=== PATIENT | female | born 1945 | race Caucasian/White ===

== ENCOUNTER 2017-01-19 18:38 | Emergency (ER) | payer MEDICARE ==
[~2017-01-19] VITALS: Ht 154.9 cm; Wt 47.7 kg
[~2017-01-19 18:38] MED LIST: AMLO10TA3 PO; ATEN25TA PO; HYDR-4003 PO; LISI40TA PO; ZOLP10TA5 PO
[2017-01-19 18:55] VITALS: BP 171/57; PULSE 72; RESP 20; O2SAT 96
--- NOTE | 2017-01-19 19:29 | ED.REPORT ---
HPI-Altered Mental Status Date of Service January 19, 2017 ED Provider: Ronnie Medellin MD The pt is a 71 y/o female w/ a hx of hypertension presenting to the ED via EMS due to increased confusion per her . She is also experiencing SOB and a cough onset yesterday. She denies fever, diaphoresis, chills, productive cough, abd pain, nausea, vomiting, dysuria, numbness or weakness in extremities. She is an ex-smoker and does not have a hx of emphysema or COPD. Nursing Notes Stated Complaint: ALTERED LOC Chief Complaint: Neuro Symptoms/ Deficits Nursing Notes Reviewed: Yes ([id number], chart blank, meds not reconciled) Allergies: Coded Allergies: No Known Allergies (Verified Allergy, Unknown, 05/31/15) Scheduled Amlodipine (Amlodipine) 5 Mg Tablet 5 MG PO BID Atenolol (Atenolol) 25 Mg Tablet 25 MG PO QAM Doxycycline Hyclate (Doxycycline Hyclate) 100 Mg Tablet 100 MG PO BID X10 DAYS Lisinopril (Lisinopril) 40 Mg Tablet 40 MG PO QPM Prednisone (PredniSONE) 50 Mg Tablet 50 MG PO QAM x5 days Scheduled PRN Albuterol HFA (Proair HFA) 8.5 Gm Hfa.aer.ad 2 PUFFS INHALATION Q4H PRN PRN For Shortness of Breath Benzonatate (Benzonatate) 200 Mg Capsule 200 MG PO TID PRN PRN For Cough Hydrocodone-Acetaminophen 5-325 mg (Hydrocodone-Acetaminophen 5-325 mg) 1 Each Tablet 1 TABLET PO Q6H PRN PRN For Pain Zolpidem (Zolpidem) 10 Mg Tablet 10 MG PO HS PRN PRN For Insomnia General Time Seen by MD: 19:27 Chief Complaint Other (Increased confusion) Hx Obtained From: Patient Sudden in Onset?: Yes Onset Occurred: Yesterday Recent Healthcare: No recent hospitalization, Recent doctor visit Past Medical History Past Medical History Notes: Patient denies taking any current medicines but is confused-old records in 2010 indicates that she used to be on lisinopril 40 mg daily, and atenolol 25 mg daily, patient was given prescriptions for doxycycline and Tessalon Perles several days ago at the urgent care-the patient states she is not taking these either Past Medical History 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, completed in June 2010 Hypertension Denies: Diabetes mellitus Past Surgical History For cancer Hysterectomy Right breast biopsy Foot surgery D&C 2 Smoking History Former Smoker (records indicate patient quit in 2008 after 50 pack years of smoking, patient's confused but denied being a smoker today) Social History Alcohol Use: Denies alcohol use Drug Use: Denies drug use Ambulatory Status Independent Review of Systems Constitutional: Denies: Chills, Fever Respiratory: Reports: Non-productive cough, Shortness of breath GI: Denies: Abdominal pain, Nausea, Vomiting Skin: Denies Diaphoresis Neurologic: Reports: Confusion, Denies: Numbness, Weakness Complete sys rev & neg: except as marked. Female: Denies: Dysuria Physical Exam Initial Vital Signs Vital Signs (First) Date Time Temp Pulse Resp B/P Pulse Ox O2 Delivery O2 Flow Rate FiO2 01/19/17 18:55 36.4 72 20 171/57 96 Room Air Initial VS: Reviewed, Unavailable (no vitals on chart, ordered) General/Constitutional: Awake, Alert Alertness: Positive: Confused (Mild) Head / Eyes: Atraumatic, Normocephalic Neck: Atraumatic, Full range of motion Respiratory / Chest: Breath sounds = bilat, No respiratory distress Audible wheezing Rhonchi Tachypnea O2 saturation is low w/o exertion Cardiovascular: Heart rate NL, Regular rhythm, Heart sounds NL No peripheral edema Neurologic: Speech NL, No motor deficits, No sensory deficits Pt knows birthday but not date Psychiatric: Not suicidal, Not homicidal Limited insight and judgement Interpretation & Diagnostics Lab Results Interpretation Result Diagram: 01/19/17200401/19/176 Test 01/19/17 20:05 01/19/17 22:26 White Blood Count 20.2th/mm3 (3.8-10.1) Red Blood Count 4.14mil/mm3 (3.90-5.20) Hemoglobin 9.3g/dL (12.0-15.6) Hematocrit 27.0% (35.0-46.0) Mean Corpuscular Volume 65.2fL (81-100) Mean Corpuscular Hemoglobin 22.5pg (27.0-35.0) Mean Corpuscular Hemoglobin Concent 34.4% (32.0-37.0) Red Cell Distribution Width 14.8% (12.3-15.4) Platelet Count 349bil/L (150-400) Neutrophils (%) (Auto) 90.9% (40-74) Lymphocytes (%) (Auto) 2.6% (14-46) Monocytes (%) (Auto) 5.8% (4-12) Eosinophils (%) (Auto) 0% (0-5) Basophils (%) (Auto) 0.1% (0-3) Lactic Acid Level 1.2mmol/L (0.4-2.0) Total Bilirubin 0.8mg/dL (0.0-1.2) Aspartate Amino Transf (AST/SGOT) 24U/L (0-50) Alanine Aminotransferase (ALT/SGPT) 14U/L (0-32) Alkaline Phosphatase 112U/L (25-165) Troponin T < 0.010ug/L (0.0-0.011) Total Protein 6.4g/dL (6.4-8.4) Albumin 3.8g/dL (3.4-5.0) Sodium Level 103mEq/L (134-144) Potassium Level 2.9mEq/L (3.5-5.2) Chloride Level 66mEq/L (97-108) Carbon Dioxide Level 21mmol/L (18-29) Blood Urea Nitrogen 9mg/dL (8-27) Creatinine 0.41mg/dL (0.57-1.00) Estimat Glomerular Filtration Rate 218mL/min (>59) Glucose Level 180mg/dL (60-99) Calcium Level 7.8mg/dL (8.5-10.1) Lab Results Interpretation: CBCs and leukocytosis CMP severe hyponatremia, normal renal function, glucose, LFTs Lactic acid normal Blood culture 2 pending Urinalysis still pending Repeat sodium 103 ECG Interpretation ECG Interpretation: Normal sinus rhythm Non-specific flattened T waves V4,V5,V6 Previous non-specific ST depression V4,V5, V6 on 2009 EKG Time: 20:10 Interpreted by: ED physician X-Ray Chest Interpretation Chest Xray Interpretation: IMPRESSION: Right basilar opacities and bilateral pleural fluid collection suspicious for pneumonia versus aspiration. Dictated by: Starr Hines MD, PhD on 01/19/2017 at 19:59 Approved by: Starr Hines MD, PhD on 01/19/2017 at 20:00 View: Portable, 1 view Interpretation / Wet Read by: Interpret - Radiologist CT Head Interpretation IMPRESSION: No acute intracranial disease process. Dictated by: Starr Hines MD, PhD on 01/19/2017 at 21:02 Approved by: Starr Hines MD, PhD on 01/19/2017 at 21:05 Interpretation / Wet Read by: Interpret - Radiologist Re-Eval/Medical Decision Med Decision/Clinical Course This is a 71-year-old female who was reportedly sent in by EMS when the called for a complaint of significant confusion. The patient cannot provide a very good useful history. She has mild confusion. She is energetic and adamant that she is fine-alone walk in the room she has an audible wheeze and cough evident for more than 20 feet away. It turns out the patient was diagnosed with some sort of respiratory infection and given prescriptions for doxycycline and Tessalon Perles several days ago at urgent care-the patient states that she has not been taking these medicines. She denies any respiratory symptoms-despite having obvious respiratory symptoms in evident clinically at the bedside. She also denied being a smoker, although records indicate a 50+ pack year history having quit in 2008. She denies previous history of COPD, and lung disease is not mentioning any prior records. While she is mildly confused, she has no focal findings on exam. She is able lift her arms and legs with no deficit, no features of a focal deficit. Currently febrile, tachycardic, or hypoxic. She does however have marked bronchospasm and the cough evident on clinical exam. Her chest x-ray is notable for probable pneumonia with left pleural effusion. Malignancy cannot be excluded, particularly given the severe hyponatremia evident on laboratory testing. Blood work is notable for a leukocytosis, as well as critically severe hyponatremia-with normal renal function. The level of hyponatremia, admission to the CCU is warranted. ECG beds. The first several facilities have talked to have not had beds either. Given the prolonged duration in the department- I stressed the case with the on-call gauge and instrument inspector at their recommendations on initial management. They recommended a initial 100 mL bolus of 3% normal saline over 1 hour, followed by 30 mL/h infusion of 3% saline for the first few hours with every 2 hour electrolytes rechecked while we continue to work on placement. Our [employer] ordering system does not permit a proper dosing of 3% saline, psych consult with pharmacy for their assistance to make sure the dosing was appropriate and correct. She has been started on antibiotics of ceftriaxone and azithromycin for community-acquired pneumonia, prior to the results of the electrolytes. The severity of the bronchospasm she received empiric steroids and albuterol and Atrovent in the department. The patient has ultimately been accepted at [facility]. I talked to the title department manager he does not wish the patient to receive the 3% percent saline and the patient's level of alertness suggests this is a very slow onset process, so the N the patient only received approximately 10-15 mL by 3% saline and the infusion was discontinued. Patient is being transferred in stable condition. Source of Hx: Old records Consultation : Consulted With: Hospitalist Call Returned at: 22:34 Landscape Architect And Planner: Will see patient, Agrees with eval, Agrees with plan, Accepts admit Note: Discussed pt w/ a Dr. Lazo, Hospitalist, at [facility] in [place]. He agrees to see the patient. Differential Diagnosis: Positive: Hyponatremia, Negative: Delirium tremens, Hypotension, Intracerebral hemorrhage, Mass lesion, Pseudoseizure, Seizure disorder, Uremia Counseled Regarding: Diagnosis, Lab results, Need for admission Patient Discharge & Departure Impression: Primary Impression: Pneumonia Pneumonia type: due to unspecified organism Laterality: left Lung location : lower lobe of lung Qualified Code: J18.1 - Lobar pneumonia, unspecified organism Additional Impressions: Pleural effusion Hyponatremia Confusion Disposition: ADMITTED TO HOSPITAL Discharge Condition All VS Reviewed: Yes Condition: Stable Referrals: Jose Carlson MD (PCP) Crit Care Except Billable Proc Time Spent: 30-74 minutes Services Performed: Patient management by me, Time spent at bedside, Reviewing test results, Reviewing imaging, Discussing patient care, Documentation in record, Other Scribe Attestation Portions of this note were transcribed by Severo Levy. I, Dr. Medellin personally performed the history, physical exam and medical decision-making; I reviewed and confirmed the accuracy of the information in the transcribed note. Signed by : Mic Melendez, 01/19/17 and 2013. copies to: Jose Carlson MD, Matthew F MD January 19, 2017 19:29 Severo Levy January 19, 2017 19:35
[2017-01-19] MEDS ORDERED: MethylprednisoLONE Sodium Succinate 62.5 mg/mL 2 mL Inj IVPUSH ONE (19:35)
[2017-01-19] MEDS ORDERED: Ipratropium 0.02% 0.5 mg/2.5 mL Inhalation Solution NEB ONE (19:35)
[2017-01-19] MEDS ORDERED: Albuterol 2.5 mg/3 mL Inhalation Solution NEB ONE (19:35)
[2017-01-19] MEDS ORDERED: cefTRIAXone Inj 2,000 MG in Dextrose 5% Minibag Plus 50 ML IV ONE (19:40)
[2017-01-19] MEDS ORDERED: Azithromycin Inj 500 MG in Dextrose 5% w/Vial Mate 250 ML IV ONE (19:40)
[2017-01-19 19:58] VITALS: PULSE 71; RESP 20; O2SAT 99
--- NOTE | 2017-01-19 20:01 | DRSVH ---
PROCEDURE: X-RAY CHEST ONE VIEW, PORTABLE ([id number]) INDICATIONS: SOB, cough TECHNIQUE: One view of the chest was acquired. COMPARISON: [facility], , CHEST 2VW, 01/11/2014, 11:56. FINDINGS: Surgical changes and devices: None. Lungs and pleura: Small left-sided and trace right-sided pleural effusion is noted. Bibasilar opaci ties left greater than right suspicious for pneumonia versus aspiration. Mediastinum: Mediastinal contours appear normal. Heart size is normal. Bones and chest wall: No suspicious bony lesions. Overlying soft tissues appear unremarkable. IMPRESSION: Right basilar opacities and bilateral pleural fluid collection suspicious for pneumonia versus aspiration. Dictated by: Starr Hines MD, PhD on 01/19/2017 at 19:59 Approved by: Starr Hines MD, PhD on 01/19/2017 at 20:00
[2017-01-19] MEDS ORDERED: DOXY100T2 PO (20:24)
[2017-01-19] MEDS ORDERED: BENZ200C44 PO (20:24)
[2017-01-19] MEDS ORDERED: PRED50TA PO (20:32)
[2017-01-19] MEDS ORDERED: AMLO5TAB2 PO (20:32)
[2017-01-19] MEDS ORDERED: ALBU8.5H2 INHALATION (20:33)
[2017-01-19 20:36] LABS: BASOPHILS % (AUTO) 0.1 % (0-3); EOSINOPHILS % (AUTO) 0 % (0-5)
[2017-01-19 20:43] LABS: Mean Corpuscular Hemoglobin 22.5 pg (27.0-35.0); Mean Corpuscular Volume 65.2 fL (81-100); NEUTROPHILS % (AUTO) 90.9 % (40-74); Platelet Count 349 bil/L (150-400)
[2017-01-19 20:44] LABS: MONOCYTES % (AUTO) 5.8 % (4-12)
[2017-01-19 20:55] LABS: TROPONIN T < 0.010 ug/L (0.0-0.011)
--- NOTE | 2017-01-19 21:06 | DRSVH ---
PROCEDURE: CT BRAIN WITHOUT CONTRAST ([id number]) INDICATIONS: Acute altered mental status. Confusion. TECHNIQUE: Noncontrast 4.5 mm thick angled axial sections acquired from the foramen magnum to the vertex, with c oronal reformats. COMPARISON: [facility], CT, BRAIN W/O CONTRAST, 02/16/2010, 10:57. FINDINGS: Image quality: Excellent. CSF spaces: Basal cisterns are patent. No extra-axial fluid collections. The ventricles are symmet kenyatta in size and shape. Brain: No intracranial bleeds or masses. There is cerebral volume loss for age, with resultant vent ricular and sulcal prominence. There are periventricular and deep white matter chronic small vessel ischemic changes. There is intracranial internal carotid artery atherosclerosis. Skull and face: Calvarium and visualized facial bones appear intact, without suspicious lesions. Sinuses: Visualized sinuses and mastoids are clear. IMPRESSION: No acute intracranial disease process. Dictated by: Starr Hines MD, PhD on 01/19/2017 at 21:02 Approved by: Starr Hines MD, PhD on 01/19/2017 at 21:05
[2017-01-19] MEDS ORDERED: 3% Sodium Chloride Inj 100 ML IV ONE (22:05)
[2017-01-19] MEDS ORDERED: Lidocaine 2% 6mL Topical Jelly TOPICAL ONE (22:50)
[2017-01-20 00:16] VITALS: BP 145/53; PULSE 70; RESP 14; O2SAT 98
== END 2017-01-19 23:40 | disposition short-term general hospital (02) ==
LOC: EDBD 18:38 → SED 18:38 → EDUNIT# 18:38 → SED 23:40
DX: J18.1 Lobar pneumonia, unspecified organism (principal); J90 Pleural effusion, not elsewhere classified; E87.1 Hypo-osmolality and hyponatremia; R41.0 Disorientation, unspecified; I10 Essential (primary) hypertension; Z87.891 Personal history of nicotine dependence
CPT/HCPCS: 36415; 70450; 71010; 80048; 80053; 83605; 84484; 85025; 87040; 93005; 94664; 96365; 96367; 96375; 99291; J0456; J0696; J2930; J7613